=== PATIENT | female | born 1970 | race Caucasian/White ===

== ENCOUNTER → 2016-12-06 | Outpatient (CLI) | payer OTHER ==
[~2016-12-06] VITALS: Ht 172.7 cm; Wt 63.5 kg
[~2016-12-06] MED LIST: ACYCLOVIR 400400 MG PO; ARMOUR THYROID180 M1 PO; BUTORPHANOLNS2 NS; CARISOPRODOL 3350 MG PO; DESYREL300 MG PO; EFFEXOR XR75 MG PO; KEPPRA 500 MG500 M1 PO; MAXALT5 MG PO; NABUMETONE 500500 M1 PO; TOPAMAX 100 MG100 MG PO; TRAMADOL 50 MG50 MG PO; VICODIN ES 7.51 EACH PO; ZANAFLEX4 MG PO
--- NOTE | ~2016-12-06 | HPC ---
[facility] [place] [address] PAIN MANAGEMENT CONSULTATION Name: OSCAR ZAMAN ANNY Room #: REG MANDA Lowry#: [id number] Admission: 12/06/16 Attend Phys: Jonas Cortes DO Discharge: Date of : 66 Report #: [id number] THIS REPORT FOR: //name// CC: Lydia Cortes DATE OF SERVICE: 12/06/2016 The patient is a 46-year-old female seen in consultation at the request of Dr. Lydia Patricia for evaluation of pain, neck, right shoulder and arm. The patient notes pain has been present for several years. Denies any specific antecedent trauma and overuse. She notes she has a "tense" tight sensation in the trapezius and upper neck muscles on the right. Paresthesia going into the hand and shoulder, subjective weakness in the hand. She has tried anti-inflammatory medications, physical therapy, massage, all with nominal efficacy. She uses a topical Biofreeze compound with some efficacy. She notes the pain is exacerbated with movement. She describes continuous, constant, periodic, shooting, cramping, tender, sharp and throbbing pain, rates anywhere from 6-10 on a 0-10 visual analog scale. REVIEW OF SYSTEMS: Complete review of systems was attached to chart and was gone over with the patient. SOCIAL HISTORY: She is , does not smoke or drink alcohol to excess. PAST MEDICAL HISTORY: Has a history of seizure disorder for the past 8-9 years, she has had some recent seizures and in fact is unable to drive due to changes in her medication management. History of Bam thyroiditis. History of chronic anxiety, bipolar disorder. The patient is actually medically disabled secondary to bipolar disorder and Bam thyroiditis. The patient recently had a breast augmentation surgery. She was tearful and frustrated today telling me that she was not pleased with the surgical outcome. PHYSICAL EXAMINATION: Shows a 46-year-old female. BMI is 21.3 kilograms per meter squared. Vital signs are stable. Cervical range of motion is limited in all planes secondary to subjective pain. Thyroid is enlarged. No nodules are noted. Right biceps reflex is absent. Biceps strength is nominally limited on the right. Brachioradialis and triceps reflexes are symmetric. Hand grasp is adequate. Heart is regular and rhythmical without murmur. Lungs are clear to auscultation. Abdomen is benign. Gait is tandem. DIAGNOSTIC STUDIES: Include MRI of the cervical spine and x-rays. The x-rays note bilateral facet hypertrophy C4 through C7-T1. The MRI does show some right-sided neural foraminal narrowing at C5-C6 compatible with the right C6 [address] [address] PAIN MANAGEMENT CONSULTATION Name: JUNIEOSCAR ANN Room #: REG MANDA Lowry#: [id number] Admission: 12/06/16 Attend Phys: Jonas Cortes DO Discharge: Date of : 66 Report #: [id number] radiculopathy. IMPRESSION: Symptomatic cervical radiculopathy by clinical exam and history in a patient with bipolar disorder. RECOMMENDATIONS: We will trial nabumetone 500 mg b.i.d., carisoprodol 350 mg t.i.d. for spasm. I told her I was loathe to prescribe an opiate analgesic with concurrent muscle relaxant and a benzodiazepine type drug (Soma's metabolites to meprobamate) especially in a patient on multiple central acting agents including Topamax, Keppra, trazodone, Effexor. Thank you for allowing me to participate in the patient's care. We will seek authorization for cervical epidural injection under fluoroscopy at earliest possible date. I will keep you abreast of her progress. By: [id number] Jonas Cortes DO /nt
[2016-12-06 13:57] VITALS: BP 96/71
== END | disposition home or self-care (01) ==
LOC: PAIN 06:47
DX: M54.12 Radiculopathy, cervical region (principal); F31.9 Bipolar disorder, unspecified; Z87.891 Personal history of nicotine dependence